=== PATIENT | female | born 1935 | race Caucasian/White ===

== ENCOUNTER 2018-09-22 12:15 | Emergency (ER) | payer OTHER, MEDICARE ==
[2018-09-22 12:29] VITALS: BP 129/64; PULSE 84; TEMP 97.9; BMI 19.5
[2018-09-22] MEDS ORDERED: ACETAMINOPHEN 500 MG TABLET (FP) PO ONE (13:00)
--- NOTE | 2018-09-22 13:03 | PDOC ---
History of Present Illness - General Chief Complaint: Pain, Acute Stated Complaint: RT SHOULDER PAIN Time Seen by Provider: 09/22/18 12:34 History Source: Patient Exam Limitations: No Limitations - History of Present Illness Initial Comments: 09/22/18 12:58 HISTORY OF PRESENT ILLNESS: This is a 83-year-old woman past medical history of measles, rheumatic fever, ulcerative colitis status post colectomy, mastectomy, multiple kidney stones presents emergency department for evaluation of right shoulder pain. Patient states the pain started approximately one month ago and has been going to occupational therapy at her assisted living facility. On 09/20 patient stated she tried to lift her coat and had a sudden sharp increase in pain in the anterior shoulder. She's had limited range of motion of her right shoulder since the injury. No recent travel or sick contacts. PAST MEDICAL HISTORY: see HPI SURGICAL HISTORY: Denies ALLERGIES: Morphine REVIEW OF SYSTEMS General/Constitutional: Denies fever or chills. Denies weakness, weight change. HEENT: Denies change in vision. Denies ear pain or discharge. Denies sore throat. Cardiovascular: Denies chest pain or shortness of breath. Respiratory: Denies cough, wheezing, or hemoptysis. Gastrointestinal: Denies nausea, vomiting, diarrhea or constipation. Denies rectal bleeding. Genitourinary: Denies dysuria, frequency, or change in urination. Musculoskeletal: see HPI Skin and breasts: Denies rash or easy bruising. Neurologic: Denies headache, vertigo, loss of consciousness, or loss of sensation. Psychiatric: Denies depression or anxiety. Endocrine: Denies increased thirst. Denies abnormal weight change. Hematologic/Lymphatic: Denies anemia, easy bleeding, or history of blood clots. Allergic/Immunologic: Denies hives or skin allergy. Denies latex allergy. PHYSICAL EXAM General Appearance: Well-appearing, appropriately dressed. No apparent distress , no intoxication. Respiratory/Chest: Lungs CTAB. No shortness of breath, chest tenderness, respiratory distress, accessory muscle use. No crackles, rales, rhonchi, stridor , wheezing, dullness Cardiovascular: RRR. S1, S2. No JVD, murmur, bradycardia, tachycardia. Vascular Pulses: Radial (R): 2+, Radial (L): 2+ Lymphatic: No adenopathy, tenderness. Musculoskeletal/Extremities: Normal inspection. Full passive range of motion of the right shoulder present. No bony tenderness present. Mild tenderness noted in the anterior capsule of the right shoulder. Tin Container Straightener strength 3/5 bilaterally. Neurovascular intact. Integumentary: Appropriate color, dry, warm. 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 Fully oriented, alert. Appropriate mood/affect. Motor strength 5/5. No appreciable EOM palsy, facial droop or sensory deficit. Past History - Past Medical History Allergies/Adverse Reactions: Allergies Allergy/AdvReac Type Severity Reaction Status Date / Time morphine AdvReac Verified 09/22/18 12:18 Home Medications: Ambulatory Orders Aspirin [Aspirin EC] 81 mg PO DAILY 03/09/14 Cholecalciferol (Vitamin D3) [Vitamin D] 50,000 unit PO MONTHLY 03/09/14 Citric Acid/Sodium Citrate [Liqui-Dualcitra Oral Solution] 20 ml PO TID Cyanocobalamin (Vitamin B-12) [Vitamin B-12] 1,000 mcg PO DAILY 09/22/18 Metoprolol Succinate [Toprol Xl] 25 mg PO DAILY 09/22/18 Mirtazapine [Remeron -] 30 mg PO HS 09/22/18 Simvastatin [Zocor -] 20 mg PO HS 09/22/18 Sodium Carbonate 1 gm PO BID 09/22/18 Zolpidem Tartrate [Ambien] 5 mg PO HS 09/22/18 Cancer: Yes (PAROTID) Cardiac Disorders: Yes (RHEUMATIC FEVER, MVP, PPM, ENDOCARDITIS) GI Disorders: Yes Disorders: Yes (MEDULARY SPONGE KIDNEY DISEASE) Hypercholesterolemia: Yes Kidney Stones: Yes (ILEOSTOMY AND REVISION, ULCERATIVE COLITIS/CROHNS) - Surgical History Abdominal Surgery: Yes (COLEECTOMY, ILEOSTOMY AND REVISION, ABD/PERINEAL RESECTION) - Immunization History Immunization Up to Date: Yes - Suicide/Smoking/Psychosocial Hx Smoking History: Unknown if ever smoked Have you smoked in the past 12 months: No If you are a former smoker, when did you quit?: 30 YRS *Physical Exam - Vital Signs Last Vital Signs Temp Pulse Resp BP Pulse Ox 97.9 F 84 18 129/64 98 09/22/18 12:21 09/22/18 12:21 09/22/18 12:21 09/22/18 12:21 02/15/19 12:21 Moderate Sedation - Procedure Monitoring Vital Signs: Procedure Monitoring Vital Signs Temperature 97.9 F 09/22/18 12:21 Pulse Rate 84 09/22/18 12:21 Respiratory Rate 18 09/22/18 12:21 Blood Pressure 129/64 09/22/18 12:21 O2 Sat by Pulse Oximetry (%) 98 09/22/18 12:21 ED Treatment Course - RADIOLOGY Radiology Studies Ordered: Category Date Time Status UPPER EXTREMITY CT W/O CONTR [CT] Stat CT Scan 09/22/18 12:57 Ordered Medical Decision Making - Medical Decision Making 09/22/18 13:03 A/P: 83-year-old woman with atraumatic right shoulder pain CAT scan of the right shoulder to rule out fracture Tylenol 975 mg orally now Reassess 09/22/18 13:55 CT as read by Dr. Henning: CT imaging completed with no evidence of acute fracture or dislocation. No evidence of hematoma, bursal or joint effusion the adjacent contiguous structures including the axilla and breast as well as the lung and ribs and mediastinum including sternal clavicular joint, clavicle and acromioclavicular joint. No definite findings to account for pain in the region. Discharge home with ortho f/u. I discussed the physical exam findings, ancillary test results and final diagnoses with the patient. I answered all of the patient's questions. The patient was satisfied with the care received and felt comfortable with the discharge plan and treatment plan. The patient will call their primary care physician within 24 hours to arrange follow-up and will return to the Emergency Department with any new, persistent or worsening symptoms. *DC/Admit/Observation/Transfer Diagnosis at time of Disposition: Right anterior shoulder pain - Discharge Dispostion Disposition: HOME Condition at time of disposition: Stable Decision to Admit order: No - Referrals Referrals: Janett Riley [Primary Care Provider] - Turner Merchant MD [Staff Physician] - - Patient Instructions Additional Instructions: REST. Take Tylenol or Motrin as needed for pain. Follow manufacturers instructions for appropriate dosage. Apply ice for 20 minutes and removed for at least 20 minutes before reapplying the ice. Keep sling on your shoulder as much as possible to help decrease some of the swelling control pain. You've been given the number for an orthopedist. If symptoms do not resolve within the next 7 days call the orthopedist for further evaluation. Return to emergency department for discoloration of the hand, numbness or tingling to the handt, worsening pain, or any other concerns. Thank you very much for choosing us to provide your emergent healthcare needs. - Post Discharge Activity
[2018-09-22] MEDS ORDERED: ACETAMINOPHEN 325 MG TABLET (FP) ONE (13:07)
== END 2018-09-22 13:58 | disposition home or self-care (01) ==
LOC: JERFT 12:15
DX: M25.511 Pain in right shoulder (principal); I05.8 Other rheumatic mitral valve diseases; Z95.0 Presence of cardiac pacemaker; N28.9 Disorder of kidney and ureter, unspecified; Z85.89 Personal history of malignant neoplasm of other organs and systems; Z87.19 Personal history of other diseases of the digestive system
CPT/HCPCS: 73200-TC-RT; 99281-25

== ENCOUNTER 2019-09-10 20:31 | Emergency (ER) | payer OTHER, MEDICARE ==
[2019-09-10 20:48] VITALS: BP 150/60; PULSE 76; TEMP 98.3; BMI 21.7
[2019-09-10] MEDS ORDERED: ACETAMINOPHEN 500 MG TABLET (FP) PO ONE (21:02)
--- NOTE | 2019-09-10 21:09 | PDOC ---
History of Present Illness - General Chief Complaint: Injury Stated Complaint: FALL Time Seen by Provider: 09/10/19 20:45 - History of Present Illness Initial Comments: Ms. Vázquez is a 84 y/o female with PMH including measles, kidney stones, ostomy bag, colon resection, IBD, presenting today s/p mechanical fall. Reports that she was at home after dinner when she tripped and fell forward first onto her knees and then hitting her head on the edge of the counter. Denies LOC. Reports that she remembers the entire episode. Lives in assisted living and was able to call for help. Reports headache. Denies dizziness or palpitations. Denies weakness or loss of balance. No blood thinners. Past History - Past Medical History Allergies/Adverse Reactions: Allergies Allergy/AdvReac Type Severity Reaction Status Date / Time levofloxacin [From Levaquin] Allergy Verified 09/10/19 20:34 morphine AdvReac Verified 09/10/19 20:34 Home Medications: Ambulatory Orders Aspirin [Aspirin EC] 81 mg PO DAILY 03/09/14 Cholecalciferol (Vitamin D3) [Vitamin D] 50,000 unit PO MONTHLY 03/09/14 Citric Acid/Sodium Citrate [Liqui-Dualcitra Oral Solution] 20 ml PO TID Cyanocobalamin (Vitamin B-12) [Vitamin B-12] 1,000 mcg PO DAILY 09/22/18 Metoprolol Succinate [Toprol Xl] 25 mg PO DAILY 09/22/18 Mirtazapine [Remeron -] 30 mg PO HS 09/22/18 Simvastatin [Zocor -] 20 mg PO HS 09/22/18 Sodium Carbonate 1 gm PO BID 09/22/18 Zolpidem Tartrate [Ambien] 5 mg PO HS 09/22/18 Cancer: Yes (PAROTID) Cardiac Disorders: Yes (RHEUMATIC FEVER, MVP, PPM, ENDOCARDITIS) COPD: No GI Disorders: Yes Disorders: Yes (MEDULARY SPONGE KIDNEY DISEASE) Hypercholesterolemia: Yes Kidney Stones: Yes (ILEOSTOMY AND REVISION, ULCERATIVE COLITIS/CROHNS) - Surgical History Abdominal Surgery: Yes (COLEECTOMY, ILEOSTOMY AND REVISION, ABD/PERINEAL RESECTION) - Immunization History Immunization Up to Date: Yes - Psycho Social/Smoking Cessation Hx Smoking History: Never smoked Have you smoked in the past 12 months: No If you are a former smoker, when did you quit?: 30 YRS Hx Alcohol Use: No Drug/Substance Use Hx: No Review of Systems - Review of Systems Comments:: GENERAL/CONSTITUTIONAL: No fever or chills. No weakness._ HEAD, EYES, EARS, NOSE AND THROAT: No change in vision. No change in hearing. No sore throat._ CARDIOVASCULAR: No chest pain or shortness of breath_ RESPIRATORY: Denies cough, hemoptysis_ GASTROINTESTINAL: No nausea, vomiting, diarrhea or constipation._ GENITOURINARY: No dysuria, frequency, or change in urination._ MUSCULOSKELETAL: No joint or muscle swelling or pain. No neck or back pain._ SKIN: No rash_ NEUROLOGIC: Reports headache. No vertigo, loss of consciousness, or change in strength/sensation._ ENDOCRINE: No increased thirst. No abnormal weight change_ HEMATOLOGIC/LYMPHATIC: No anemia, easy bleeding, or history of blood clots._ ALLERGIC/IMMUNOLOGIC: No hives or skin allergy._ *Physical Exam - Vital Signs Last Vital Signs Temp Pulse Resp BP Pulse Ox 98.3 F 76 18 150/60 96 09/10/19 20:32 09/10/19 20:32 09/10/19 20:32 09/10/19 20:32 09/10/19 20:32 - Physical Exam GENERAL: Awake, alert, and oriented to person/place/time, in no acute distress_ HEAD: 1.5 cm laceration over right side of forehead. No racoon's eyes. No argueta signs. No rhinorrhea. EYES: PERRLA, EOMI, sclera anicteric, conjunctiva clear_ ENT: Hearing grossly normal, nares patent, oropharynx clear without exudates. No uvular deviation. Moist mucosa_ NECK: Normal ROM, supple, no lymphadenopathy, JVD, or masses_ LUNGS: No distress, speaks in full sentences, clear to auscultation bilaterally _ HEART: Regular rate and rhythm, normal S1 and S2, no murmurs appreciated, peripheral pulses normal and equal bilaterally._ ABDOMEN: Soft, nontender, normoactive bowel sounds. No guarding, no rebound. No masses_ EXTREMITIES: Normal inspection, Normal range of motion, no edema. No clubbing or cyanosis_ NEUROLOGICAL: CN II-XII tested and intact. Sensation intact to sharp/dull differentiation in all extremities. Motor: Normal tone and bulk. No abnormal movements appreciated. No pronator drift. Strength tested and 5/5 in bilateral wrist flexion/extension, elbow flexion/extension, shoulder abduction, straight leg raise, knee flexion/ extension, ankle dorsiflexion/plantarflexion. Patient ambulates with a steady gait. Coordination: Finger to nose and heel to roth testing intact bilaterally. SKIN: Warm, Dry, normal turgor, no rashes or lesions noted_ Medical Decision Making - Medical Decision Making 09/10/19 21:10 84F presenting today s/p mechanical fall with 1cm laceration to the forehead. -CT head and c-spine 09/11/19 00:24 CT head shows no bleed or acute intracranial pathology. CT neck shows no fracture. Laceration Repair Note Verbal consent was obtained, and patient was provided with risks and alternatives to the procedure. Wound was copiously irrigated with 10 cc NS, and anesthetized with 1 mL of lidocaine 1%. Wound carefully explored and no foreign body, tendon injury, or nonviable tissue were noted. Using sterile technique 6- 0 sutures was used to reapproximate the wound. 5 interrupted-sutures were placed. Patient tolerated procedure well, no complications. Patient advised to look for and return for any signs of infection such as redness, swelling, discharge, or worsening pain. Patient advised to return for suture removal within 5 days. D/w the patient the plan for d/c. Patient verbalized understanding and agreement with plan. All questions answered. Return precautions given. Discharge - Discharge Information Problems reviewed: Yes Clinical Impression/Diagnosis: Fall Qualifiers: Encounter type: initial encounter Qualified Code(s): W19.XXXA - Unspecified fall, initial encounter Laceration of forehead Qualifiers: Encounter type: initial encounter Qualified Code(s): S01.81XA - Laceration without foreign body of other part of head, initial encounter Condition: Stable Disposition: HOME - Admission No - Follow up/Referral - Patient Discharge Instructions Patient Printed Discharge Instructions: DI for Laceration Repair, DI for Laceration Repair -- Simple, How to Care for a Laceration After Repair Additional Instructions: Please see your PCP or return to the emergency department in 5 days for suture removal. If you experience any new, worsening, or concerning symptoms, including headache , dizziness, loss of consciousness, fever, chills, bleeding or discharge from the wound, or any other concerns, please return to the emergency department. - Post Discharge Activity
--- NOTE | 2019-09-10 21:11 | PDOC ---
Attending Attestation - Resident Resident Name: Nagi Clark - ED Attending Attestation I have performed the following: I have examined & evaluated the patient, The case was reviewed & discussed with the resident, I agree w/resident's findings & plan, Exceptions are as noted - HPI HPI: 09/10/19 21:09 84yoF hx of HTN, DM, IBD w/ surgery and [facility] pt was looking at her mail and tripped on uneven sidewalk. No LOC, feels well, ambulatory immediatley after and in ED. - Physicial Exam PE: 09/10/19 22:02 NAD, well apeparing 1.5cm laceration to forehead no periorbital tenderness no midline cspine tenderness RRR CTABL soft ntnd pelvis stable A&O x 3 - Medical Decision Making 09/10/19 22:03 84yoF w/ trip and fall, head strike, head lac. - fails hct rule based upon age - lac repair - pt states that her tetanus vaccination is UTD.
[2019-09-10] MEDS ORDERED: ACETAMINOPHEN 500 MG TABLET (FP) ONE (21:20)
== END 2019-09-11 01:25 | disposition home or self-care (01) ==
LOC: JER 20:31
PROC: 0HQ1XZZ Repair Face Skin, External Approach (ICD-10-PCS; principal; 2019-09-10)
DX: S01.81XA Laceration without foreign body of other part of head, initial encounter (principal); W01.190A Fall on same level from slipping, tripping and stumbling with subsequent striking against furniture, initial encounter; Y93.89 Activity, other specified; Y92.098 Other place in other non-institutional residence as the place of occurrence of the external cause; Y99.8 Other external cause status; E78.00 Pure hypercholesterolemia, unspecified; Z87.19 Personal history of other diseases of the digestive system; Z87.448 Personal history of other diseases of urinary system; Z86.79 Personal history of other diseases of the circulatory system; Z85.89 Personal history of malignant neoplasm of other organs and systems; Z88.1 Allergy status to other antibiotic agents; Z88.5 Allergy status to narcotic agent
CPT/HCPCS: 12011-25; 70450-TC; 72125-TC; 99282-25

== ENCOUNTER 2019-09-15 11:22 | Emergency (ER) | payer OTHER, MEDICARE ==
[2019-09-15 11:38] VITALS: BP 124/63; PULSE 81; TEMP 98.3; BMI 21.7
--- NOTE | 2019-09-15 11:53 | PDOC ---
History of Present Illness - General Chief Complaint: Suture/Staple Removal(Here) Stated Complaint: SUTURE REMOVAL Time Seen by Provider: 09/15/19 11:40 - History of Present Illness Initial Comments: 09/15/19 11:53 Patient is an 84-year-old female who presents the ED for suture removal of a forehead laceration that she sustained 5 days ago. She states the sutures was placed 5 days ago. She denies any complaints today. She denies any pus from the wound, wound dehiscence or any other problems. Past History - Past Medical History Allergies/Adverse Reactions: Allergies Allergy/AdvReac Type Severity Reaction Status Date / Time levofloxacin [From Levaquin] Allergy Verified 09/15/19 11:32 morphine AdvReac Verified 09/15/19 11:32 Home Medications: Ambulatory Orders Aspirin [Aspirin EC] 81 mg PO DAILY 03/09/14 Cholecalciferol (Vitamin D3) [Vitamin D] 50,000 unit PO MONTHLY 03/09/14 Cyanocobalamin (Vitamin B-12) [Vitamin B-12] 1,000 mcg PO DAILY 09/22/18 Metoprolol Succinate [Toprol Xl] 25 mg PO DAILY 09/22/18 Mirtazapine [Remeron -] 30 mg PO HS 09/22/18 Zolpidem Tartrate [Ambien] 5 mg PO HS PRN 09/22/18 Cancer: Yes (PAROTID) Cardiac Disorders: Yes (RHEUMATIC FEVER, MVP, PPM, ENDOCARDITIS) COPD: No GI Disorders: Yes Disorders: Yes (MEDULARY SPONGE KIDNEY DISEASE) Hypercholesterolemia: Yes Kidney Stones: Yes (ILEOSTOMY AND REVISION, ULCERATIVE COLITIS/CROHNS) - Surgical History Abdominal Surgery: Yes (COLEECTOMY, ILEOSTOMY AND REVISION, ABD/PERINEAL RESECTION) - Immunization History Immunization Up to Date: Yes - Psycho Social/Smoking Cessation Hx Smoking History: Never smoked Have you smoked in the past 12 months: No If you are a former smoker, when did you quit?: 30 YRS Hx Alcohol Use: No Drug/Substance Use Hx: No Review of Systems - Review of Systems Comments:: 09/15/19 11:54 - Review of Systems Able to Perform ROS?: Yes Constitutional: No: Fever, Chills, Loss of Appetite, Night Sweats, Weakness Respiratory: No: Cough, Shortness of Breath, Wheezing, Sputum Production Cardiac (ROS): No: Chest Pain, Chest Tightness, Palpitations, Irregular Heart Beat, Edema ABD/GI: No: Nausea, Vomiting, Abdominal Pain, Diarrhea Musculoskeletal: No: Muscle Pain, Back Pain, Joint Pain, Muscle Weakness, Neck Pain Integumentary: No: Lesions, Rash; Wound with repair to the right forehead Neurological: No: Headache, Numbness, Tingling, Weakness, Speech Difficulties *Physical Exam - Vital Signs Last Vital Signs Temp Pulse Resp BP Pulse Ox 98.3 F 81 81 H 124/63 99 09/15/19 11:33 09/15/19 11:33 09/15/19 11:33 09/15/19 11:33 09/15/19 11:33 - Physical Exam 09/15/19 11:54 - Physical Exam General Appearance: Nourished, Appropriately Dressed, No Distress Neck: Supple, No Lymphadenopathy (R), No Lymphadenopathy (L), No Rigidity, No Decreased range of motion Respiratory/Chest: Lungs Clear, Normal Breath Sounds. No Respiratory Distress, No Accessory Muscle Use Cardiovascular: Regular Rhythm, Regular Rate, S1, S2 Musculoskeletal: Normal Inspection. No Decreased Range of Motion Integumentary: Normal Color, Dry. No Rash; There is a 2 cm linear laceration to the right forehead that is well-healing. There is no evidence of wound dehiscence. [address] No evidence of infection. 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 Plan: The patient had 5 sutures removed in the ED using an 11 blade scalpel. The patient tolerated the procedure well. The wound is well-healing. She should follow-up with her primary doctor within 1 to 2 days for repeat evaluation. Discharge - Discharge Information Problems reviewed: Yes Clinical Impression/Diagnosis: Visit for suture removal Condition: Stable Disposition: HOME - Follow up/Referral Referrals: Janett Riley [Primary Care Provider] - - Patient Discharge Instructions Patient Printed Discharge Instructions: DI for Suture Removal Additional Instructions: Keep the wound clean and dry. Do not apply any ointments to the wound until the scab has completely healed. Once the scab has completely healed you can apply scar cream. Follow-up with your primary doctor within 1 to 2 days for repeat evaluation. - Post Discharge Activity
== END 2019-09-15 11:57 | disposition home or self-care (01) ==
LOC: JERFT 11:22
DX: Z48.817 Encounter for surgical aftercare following surgery on the skin and subcutaneous tissue (principal); Z48.02 Encounter for removal of sutures; Z88.5 Allergy status to narcotic agent; Z88.1 Allergy status to other antibiotic agents; Z86.79 Personal history of other diseases of the circulatory system; Z87.19 Personal history of other diseases of the digestive system; Z95.0 Presence of cardiac pacemaker; Z87.448 Personal history of other diseases of urinary system
CPT/HCPCS: 99281-25